=== PATIENT | male | born 1960 | race Caucasian/White ===

== ENCOUNTER → 2016-12-02 | Outpatient (CLI) | payer OTHER ==
[2016-12-02 13:05] LABS: BLOOD UREA NITROGEN 11 mg/dL (7-18)
[2016-12-02 13:09] LABS: ASPARTATE AMINO TRANSFERASE 19 U/L (15-37)
== END | disposition home or self-care (01) ==
LOC: CFH 07:42
PROVIDERS: ATTEND Family Medicine
DX: E11.65 Type 2 diabetes mellitus with hyperglycemia (principal)
CPT/HCPCS: 36415; 80053; 80061; 82043; 83036

== ENCOUNTER → 2018-09-10 | Outpatient (CLI) | payer OTHER ==
[2018-09-10 12:49] LABS: BASOPHILS # (AUTO) 0.01 x10^3/uL (0-0.1); BASOPHILS % (AUTO) 0 % (0-1); EOSINOPHILS # (AUTO) 0.29 x10^3/uL (0-0.4); EOSINOPHILS % (AUTO) 2 % (1-7); LYMPHOCYTES # (AUTO) 1.87 x10^3/uL (1-3.4); LYMPHOCYTES % (AUTO) 14 % (22-44); MD NO; MEAN CORPUSCULAR HEMOGLOBIN 32.6 pg (27.5-34.5); MEAN CORPUSCULAR HGB CONC 33.6 g/dL (33.2-36.2); MEAN CORPUSCULAR VOLUME 97.1 fL (81-97); MEAN PLATELET VOLUME 8.5 fL (7.4-10.4); MONOCYTES # (AUTO) 0.34 x10^3/uL (0.2-0.8); MONOCYTES % (AUTO) 3 % (2-9); NEUTROPHILS % (AUTO) 81 % (42-75); PLATELET COUNT 276 x10^3/uL (130-400); RED BLOOD COUNT 5.22 x10^6/uL (4.38-5.82); RED CELL DISTRIBUTION WIDTH 13.1 % (9.4-14.8)
[2018-09-10 12:56] LABS: ANION GAP 9 mmol/L (5-15); CALCIUM 9.2 mg/dL (8.5-10.1); CHLORIDE 103 mmol/L (98-107); CHOLESTEROL, TOTAL 133 mg/dL (140-239)
[2018-09-10 13:07] LABS: ALANINE AMINOTRANSFERASE 37 U/L (12-78); ALKALINE PHOSPHATASE 83 U/L (45-117); BILIRUBIN,TOTAL 0.6 mg/dL (0.2-1.0); CHOL/HDL RATIO 2.8; CREATININE 0.93 mg/dL (0.7-1.3); HDL CHOL % 35 % (26-37); HDL CHOLESTEROL (DIRECT) 47 mg/dL (40-60); LDL CHOLESTEROL,CALCULATED 42 mg/dL (54-169); LDL/HDL RATIO 0.9 (0.5-3.0); PSA SCREEN 0.98 ng/mL (0.00-4.00); THYROID STIMULATING HORMONE 0.677 mIU/L (0.358-3.740); TRIGLYCERIDES 222 mg/dL (50-200); VLDL CHOLESTEROL 44 mg/dL (0-25)
== END | disposition home or self-care (01) ==
LOC: CFH 07:12
PROVIDERS: ATTEND Family Medicine
DX: Z12.5 Encounter for screening for malignant neoplasm of prostate (principal); E11.65 Type 2 diabetes mellitus with hyperglycemia
CPT/HCPCS: 36415; 80053; 80061; 82043; 83036; 84443; 85025; G0103

== ENCOUNTER 2019-09-07 06:39 | Inpatient (IN) | payer OTHER, MEDICAID ==
[~2019-09-07] VITALS: Ht 177.8 cm; Wt 79.4 kg
[2019-09-07] VITALS (7 sets, daily range): BP systolic 127–187; BP diastolic 74–101
--- NOTE | 2019-09-07 07:11 | NUR ---
ASSUMED CARE OF PT AT THIS TIME FROM LOBBY VIA WHEELCHAIR. ABLE TO STAND AND TRANSFER SELF TO [facility]. SPOUSE AT BEDSIDE. 59 Y/O PRESENTS STATING "FEELING OFF BALANCE, EYES SHAKY ON AND OFF, SEVERE HEADACHE MONDAY, DOUBLE VISION ON AND OFF, NOT IN PAIN ANY WHERE, JUST FEEL LIKE WHEN I STAND UP I WILL FALL DOWN, I'VE BEEN SLEEPING A LOT LIKE 18+ HRS, NUMBNESS ON LEFT SIDE OF TONGUE FOR LAST YEAR BUT SEEMS WORSE LATELY, I WAS THROWING UP A LOT AND MONDAY, STILL NOT EATING SOLID FOOD, JUST LIQUIDS. NOT REALLY DIZZY NOW." PT REPORTS HE HAS NOT TAKEN ANY OF HIS MEDICATIONS SINCE MONDAY, BUT DID TAKE THEM ALL THIS MORNING. DENIES CP, SOB, DIARRHEA, POTTS, ABD PAIN, DIARRHEA, FEVER, CHILLS, RECENT TRAVEL OR EXPOSURE TO COVID + PERSONS. RESIDENT MD AT BEDSIDE FOR EVALUATION. PT HYPERTENSIVE DISCUSSED WITH DR. MIKE AND RESIDENT MD AWARE. AWAITING ORDERS. CONT PULSE OX, BP, CARDIAC MONITORS IN PLACE. SR ON MONITOR. VITALS OTHERWISE STABLE. CALL LIGHT IN REACH. FALL PRECAUTIONS IN PLACE. ASSESSMENT COMPLETED, NEURO AND CMS INTACT. A&OX4.
[2019-09-07] MEDS ORDERED: METF500T17 PO (07:23)
[2019-09-07] MEDS ORDERED: DULA1.5P SQ (07:23)
[2019-09-07] MEDS ORDERED: HYDR25TA6 PO (07:23)
[2019-09-07] MEDS ORDERED: ROSU5TAB PO (07:23)
[2019-09-07] MEDS ORDERED: VERA240C4 PO (07:23)
[2019-09-07] MEDS ORDERED: INSU100I13 SQ-INSULIN (07:24)
[2019-09-07] MEDS ORDERED: DOXA2TAB9 PO (07:24)
[2019-09-07] MEDS ORDERED: LOSA100T14 PO (07:24)
--- NOTE | 2019-09-07 07:38 | NUR ---
DR. MIKE AT BEDSIDE FOR EVALUATION. PT UPDATED ON NPO STATUS, VERBALIZED UNDERSTANDING.
--- NOTE | 2019-09-07 07:45 | NUR ---
RAD AT BEDSIDE
--- NOTE | 2019-09-07 07:50 | NUR ---
PT IN CT, TO START IV UPON RETURN. FSBS COMPLETED WHILE DR. MIKE AT BEDSIDE, AWARE OF RESULT CHARTED. NO NEW ORDERS AT THIS TIME
[2019-09-07] MEDS ORDERED: SODIUM CHLORIDE FLUSH 10ML SYR IVF ONE (08:00)
--- NOTE | 2019-09-07 08:15 | NUR ---
PT BACK FROM CT, IV PLACED, LABS DRAWN. BP REMAINS ELEVATED, LABS OTHERWISE STABLE. DISCUSSED VITALS WITH ERP, AWARE, NO NEW ORDERS RECEIVED. CALL LIGHT IN REACH. FALL PRECUATIONS IN PLACE. DENIES ANY PAIN AND NEED TO USE RESTROOM, AWARE UA SAMPLE IS NEEDED. SPOUSE AT BEDSIDE.
[2019-09-07 08:33] LABS: MEAN CORPUSCULAR HEMOGLOBIN 31.7 pg (27.5-34.5); MEAN CORPUSCULAR HGB CONC 32.7 g/dL (33.2-36.2); MEAN PLATELET VOLUME 8.4 fL (7.4-10.4); PLATELET COUNT 294 x10^3/uL (130-400); RED BLOOD COUNT 5.27 x10^6/uL (4.38-5.82); RED CELL DISTRIBUTION WIDTH 13.1 % (9.4-14.8)
[2019-09-07 08:45] LABS: ALBUMIN 3.8 g/dL (3.4-5.0); ANION GAP 5 mmol/L (5-15); CALCIUM 8.8 mg/dL (8.5-10.1); CHLORIDE 102 mmol/L (98-107)
[2019-09-07 08:50] LABS: ALANINE AMINOTRANSFERASE 28 U/L (12-78); ALKALINE PHOSPHATASE 87 U/L (45-117); BILIRUBIN,TOTAL 0.9 mg/dL (0.2-1.0); CREATININE 0.78 mg/dL (0.7-1.3); TOTAL PROTEIN 7.1 g/dL (6.4-8.2); TROPONIN I < 0.015 ng/mL (0.000-0.045)
--- NOTE | 2019-09-07 08:55 | NUR ---
PT TO MRI AT THIS TIME. DENIED NEED TO USE RESTROOM PRIOR TO EXAM, AWARE UA SAMPLE IS NEEDED, WILL ATTMEPT TO COLLECT ON PT RETURN FROM MRI.
[2019-09-07 09:00] LABS: BASOPHILS # (AUTO) 0.12 x10^3/uL (0-0.1); BASOPHILS % (AUTO) 1 % (0-1); EOSINOPHILS # (AUTO) 0.16 x10^3/uL (0-0.4); EOSINOPHILS % (AUTO) 1 % (1-7); LYMPHOCYTES # (AUTO) 1.95 x10^3/uL (1-3.4); LYMPHOCYTES % (AUTO) 11 % (22-44); MD SCAN; MONOCYTES # (AUTO) 1.15 x10^3/uL (0.2-0.8); MONOCYTES % (AUTO) 7 % (2-9); NEUTROPHILS # (AUTO) 13.75 x10^3/uL (1.8-6.8); NEUTROPHILS % (AUTO) 80 % (42-75)
--- NOTE | 2019-09-07 09:23 | NUR ---
REMAINS IN MRI
--- NOTE | 2019-09-07 09:59 | NUR ---
PT REPORT FROM ELVIS SEBASTIAN. PT CARE TO BE ASSUMED.
[2019-09-07] MEDS ORDERED: ASPIRIN 81 MG TABLET CHEW PO ONE (10:00)
--- NOTE | 2019-09-07 10:00 | NUR ---
PT BACK FROM MRI. CLEAN CATCH UA COLLECTED AND SENT TO LAB. PT REQUESTS URINAL AT BEDSIDE, DECLINED OFFER TO AMBULATE TO RESTROOM. RESTING COMFORTABLY. DENIES ANY PAIN, DIZZINESS, POTTS, VISUAL CHANGES. BP REMAINS ELEVATED, DISCUSSED WITH DR. MIKE AND RESIDENT MD, AWARE, AWAITING ORDERS. PT REPORTS TAKING OWN 81 MG ASA THIS MORNING, 162MG ASPIRIN ORDERED BY ERP, TO CLARIFY ORDER WITH MD. CALL LIGHT IN REACH. FALL PRECUATIONS IN PLACE.
[2019-09-07] MEDS ORDERED: ASPI-496 PO (10:04)
--- NOTE | 2019-09-07 10:04 | NUR ---
PT TO CT. BEDSIDE REPORT AND TRANSFER OF CARE TO SANJIV LEAL AT THIS TIME
[2019-09-07] MEDS ORDERED: ASPIRIN 81 MG TABLET CHEW ONE (10:35)
[2019-09-07 10:37] LABS: MICROSCOPIC NOT IND
[2019-09-07] MEDS ORDERED: OMNIPAQUE 350 MG/ML, 75ML BOTTLE ONE (10:44)
--- NOTE | 2019-09-07 10:45 | NUR ---
TASK RN. PT BACK FROM CT. DYSPHAGIA SCREEN COMPLETED PER DR. MIKE PRIOR TO MEDICATION ADMIN, PT PASSED NOTED. BP IMPROVING 172/94, REMAINS SR ON MONITOR. DISCUSSED CATAPRES AND BP WITH DR. NAVARRO, PER MD TO HOLD CATAPRES AT THIS TIME. RESTING COMFORTABLY. VSS. DENIES DIZZINESS, POTTS, CP, SOB, ANY VISUAL CHANGES. SPOUSE REMAINS AT BEDSIDE. REPORT AND CARE BACK TO PRIMARY RN SANJIV.
[2019-09-07] MEDS ORDERED: CLOPIDOGREL 75 MG TABLET PO SCH (11:00)
[2019-09-07] MEDS ORDERED: CLOPIDOGREL 75 MG TABLET ONE (11:01)
--- NOTE | 2019-09-07 11:03 | NUR ---
PT A&OX4, RESP EVEN & UNLABORED, SPEECH CLEAR, SKIN WNL. REPORTS CONTINUING "NUMBISH TONGUE". ABLE TO SPEAK IN COMPLETE SENTENCES. PT'S SPOUSE IN ROOM. MONITORING CONTINUING; NSR.
--- NOTE | 2019-09-07 12:00 | NUR ---
HOSPITAL PHYSICIAN AT , DISCUSSING POC.
[2019-09-07] MEDS ORDERED: DOCUSATE 100 MG CAPSULE PO PRN (12:30)
[2019-09-07] MEDS ORDERED: DIPHENHYDRAMINE 25 MG CAPSULE PO PRN (12:30)
[2019-09-07] MEDS ORDERED: BUTALB/APAP/CAFFEINE 50MG/325MG/40MG PO PRN (12:30)
[2019-09-07] MEDS ORDERED: morphine SULFATE 10 MG/ML, 1ML IVPush PRN (12:30)
[2019-09-07] MEDS ORDERED: ENALAPRILAT 1.25 MG/ML, 2ML IVPush PRN ×2 (12:30→13:00)
[2019-09-07] MEDS ORDERED: ACETAMINOPHEN 325 MG TABLET PO PRN (12:30)
--- NOTE | 2019-09-07 13:11 | NUR ---
CALLED RECEIVING RN BACK (SHE CALLED EARLIER FOR REPORT), RN NOT AVAILABLE BUT WILL CALL BACK.
[2019-09-07] MEDS ORDERED: ENOXAPARIN 40 MG/0.4 ML ONE (13:13)
[2019-09-07] MEDS: ENOXAPARIN 40 MG/0.4 ML SQ SCH (13:16)
--- NOTE | 2019-09-07 13:25 | NUR ---
PT REPORT TO ELVIS DAVIDSON FOR ROOM 493-1
[2019-09-07] MEDS: LOSARTAN 100 MG TAB PO SCH (14:19)
[2019-09-07] MEDS ORDERED: INSU100I11 SQ (17:02)
[2019-09-07] MEDS ORDERED: ATORVASTATIN 80 MG TABLET PO SCH (21:00)
[2019-09-07] MEDS: FAMOTIDINE 20 MG TABLET PO SCH (21:08)
[2019-09-07] MEDS: INSULIN LISPRO 100 UNITS/ML, PEN SQ-INSULIN SCH (21:09)
[2019-09-08] VITALS (7 sets, daily range): BP systolic 138–165; BP diastolic 67–88
[2019-09-08] MEDS: ASPIRIN 81 MG TABLET CHEW PO SCH (05:18)
[2019-09-08] MEDS ORDERED: ASPIRIN 325 MG TABLET EC PO SCH (06:00)
[2019-09-08 06:37] LABS: BASOPHILS # (AUTO) 0.06 x10^3/uL (0-0.1); BASOPHILS % (AUTO) 1 % (0-1); EOSINOPHILS # (AUTO) 0.32 x10^3/uL (0-0.4); EOSINOPHILS % (AUTO) 3 % (1-7); LYMPHOCYTES # (AUTO) 2.48 x10^3/uL (1-3.4); LYMPHOCYTES % (AUTO) 22 % (22-44); MD NO; MEAN CORPUSCULAR HEMOGLOBIN 32.1 pg (27.5-34.5); MEAN CORPUSCULAR HGB CONC 33.4 g/dL (33.2-36.2); MEAN PLATELET VOLUME 8.8 fL (7.4-10.4); MONOCYTES # (AUTO) 0.94 x10^3/uL (0.2-0.8); MONOCYTES % (AUTO) 8 % (2-9); NEUTROPHILS # (AUTO) 7.36 x10^3/uL (1.8-6.8); NEUTROPHILS % (AUTO) 66 % (42-75); PLATELET COUNT 295 x10^3/uL (130-400); RED BLOOD COUNT 5.28 x10^6/uL (4.38-5.82); RED CELL DISTRIBUTION WIDTH 13.1 % (9.4-14.8)
[2019-09-08 06:52] LABS: ANION GAP 3 mmol/L (5-15); CALCIUM 8.9 mg/dL (8.5-10.1); CHLORIDE 101 mmol/L (98-107)
[2019-09-08 07:06] LABS: CHOL/HDL RATIO 3.2; CHOLESTEROL, TOTAL 111 mg/dL (140-239); CREATININE 0.72 mg/dL (0.7-1.3); HDL CHOL % 32 % (26-37); HDL CHOLESTEROL (DIRECT) 35 mg/dL (40-60); LDL CHOLESTEROL,CALCULATED 29 mg/dL (54-169); LDL/HDL RATIO 0.8 (0.5-3.0); TRIGLYCERIDES 236 mg/dL (50-200); VLDL CHOLESTEROL 47 mg/dL (0-25)
[2019-09-08] MEDS: DOXAZOSIN 2MG TABLET PO SCH (09:02)
[2019-09-08] MEDS: LOSARTAN 100 MG TAB PO SCH (09:03)
[2019-09-08] MEDS: SENNA/DOCUSATE TABLET PO SCH (09:04)
[2019-09-08] MEDS: FAMOTIDINE 20 MG TABLET PO SCH ×2 (09:04→21:11)
[2019-09-08] MEDS: INSULIN GLARGINE 100 UNITS/ML, PEN SQ-INSULIN SCH (09:08)
[2019-09-08] MEDS: INSULIN LISPRO 100 UNITS/ML, PEN SQ-INSULIN SCH ×4 (09:08→21:11)
[2019-09-08] MEDS: ENOXAPARIN 40 MG/0.4 ML SQ SCH (12:28)
[2019-09-08] MEDS ORDERED: ATORVASTATIN 10 MG TABLET PO SCH (21:00)
[2019-09-09 01:56] VITALS: BP 156/84
[2019-09-09] MEDS: ASPIRIN 81 MG TABLET CHEW PO SCH (05:57)
[2019-09-09 06:40] VITALS: BP 153/97
[2019-09-09] MEDS: SENNA/DOCUSATE TABLET PO SCH (07:49)
[2019-09-09] MEDS: FAMOTIDINE 20 MG TABLET PO SCH (07:49)
[2019-09-09] MEDS: LOSARTAN 100 MG TAB PO SCH (07:49)
[2019-09-09] MEDS: DOXAZOSIN 2MG TABLET PO SCH (07:50)
[2019-09-09] MEDS: INSULIN GLARGINE 100 UNITS/ML, PEN SQ-INSULIN SCH (07:50)
[2019-09-09] MEDS: INSULIN LISPRO 100 UNITS/ML, PEN SQ-INSULIN SCH ×2 (07:50→11:21)
[2019-09-09] MEDS ORDERED: ASPI-515 PO (10:23)
[2019-09-09] MEDS ORDERED: CLOP75TA52 PO (10:23)
[2019-09-09 12:45] VITALS: BP 164/93
== END 2019-09-09 13:11 | disposition home or self-care (01) | DRG 65 ==
LOC: ED 10:56 → SUATTDRO 12:16 → EDIP 12:30 → 4EST 13:37 → DCLOUNGE 09-09 12:59
PROVIDERS: ADMIT Family Medicine; ATTEND Family Medicine
DX: I63.40 Cerebral infarction due to embolism of unspecified cerebral artery (principal); G81.91 Hemiplegia, unspecified affecting right dominant side; E11.65 Type 2 diabetes mellitus with hyperglycemia; E78.5 Hyperlipidemia, unspecified; F17.210 Nicotine dependence, cigarettes, uncomplicated; H53.2 Diplopia; I10 Essential (primary) hypertension; R27.0 Ataxia, unspecified; K30 Functional dyspepsia; R29.700 NIHSS score 0; Z79.4 Long term (current) use of insulin; Z79.82 Long term (current) use of aspirin; Z91.14 Patient's other noncompliance with medication regimen
CPT/HCPCS: 36415; 70450; 70496; 70498; 70551; 71045; 80048; 80053; 80061; 81003; 82962; 83605; 84443; 84484; 85025; 93005; 93306; G0378; J1650; Q9967; J1815

== ENCOUNTER 2019-10-31 16:22 | Inpatient (IN) | payer OTHER, MEDICAID ==
[~2019-10-31] VITALS: Ht 177.8 cm; Wt 83.3 kg
[~2019-10-31 16:22] MED LIST: ASPI-496 PO; ASPI-515 PO; CLOP75TA52 PO; DOXA2TAB9 PO; DULA1.5P SQ; HYDR25TA6 PO; INSU100I11 SQ; INSU100I13 SQ-INSULIN; LOSA100T14 PO; METF500T17 PO; ROSU5TAB PO; VERA240C4 PO
--- NOTE | 2019-10-31 17:04 | NUR ---
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 ONSET TODAY AT 0930 OF RIGHT SIDE WEAKNESS WITH PROFOUND WEAKNESS OF THE OF HIS RIGHT LEG. SYMPTOMS SLOWLY IMPROVED T/O THE DAY. PT NOW PRESENTS SS= 3 RIGHT HAND GRASP WEAKER THAN LEFT. RIGHT LEG WITH MILD WEAKNESS AND NO DRIFT. SPEECH IS UNDERSTANDABLE BUT WITH MILD DYSARTHRIA AND A SLIGHT RIGHT FACIAL DROP NOTED WHILE SPEAKING. STATES "HE SOUNDS LIKE HE IS DRUNK". DR KAPLAN AT BEDSIDE, PT ASSESSMENT REVIEWED AND QUESTIONS ANSWERED. ORDERS REC'D.
[2019-10-31] MEDS ORDERED: METF10007 PO (17:07)
[2019-10-31] MEDS ORDERED: ROSU5TAB12 PO (17:07)
[2019-10-31 17:09] LABS: BASOPHILS # (AUTO) 0.08 x10^3/uL (0-0.1); BASOPHILS % (AUTO) 1 % (0-1); EOSINOPHILS # (AUTO) 0.25 x10^3/uL (0-0.4); EOSINOPHILS % (AUTO) 2 % (1-7); LYMPHOCYTES # (AUTO) 2.55 x10^3/uL (1-3.4); LYMPHOCYTES % (AUTO) 22 % (22-44); MD NO; MEAN CORPUSCULAR HEMOGLOBIN 32.5 pg (27.5-34.5); MEAN CORPUSCULAR VOLUME 95.4 fL (81-97); MEAN PLATELET VOLUME 8.6 fL (7.4-10.4); MONOCYTES # (AUTO) 0.62 x10^3/uL (0.2-0.8); MONOCYTES % (AUTO) 5 % (2-9); NEUTROPHILS # (AUTO) 8.03 x10^3/uL (1.8-6.8); NEUTROPHILS % (AUTO) 70 % (42-75); PLATELET COUNT 320 x10^3/uL (130-400); RED BLOOD COUNT 4.88 x10^6/uL (4.38-5.82); RED CELL DISTRIBUTION WIDTH 13.6 % (9.4-14.8)
[2019-10-31 17:14] LABS: INTERNATIONAL NORMALIZED RATIO 0.92 (0.93-1.1); PROTHROMBIN TIME 9.5 Seconds (9.6-11.5)
[2019-10-31 17:15] LABS: ALANINE AMINOTRANSFERASE 37 U/L (12-78); ALBUMIN 3.7 g/dL (3.4-5.0); ANION GAP 9 mmol/L (5-15); CALCIUM 8.8 mg/dL (8.5-10.1); CHLORIDE 102 mmol/L (98-107); CREATININE 0.93 mg/dL (0.7-1.3)
--- NOTE | 2019-10-31 17:17 | NUR ---
BREAK RN: ENRIQUE RPT TO ELVIS KINCAID
[2019-10-31 17:20] LABS: ALKALINE PHOSPHATASE 85 U/L (45-117); BILIRUBIN,TOTAL 0.4 mg/dL (0.2-1.0); TOTAL PROTEIN 6.9 g/dL (6.4-8.2); TROPONIN I < 0.015 ng/mL (0.000-0.045)
--- NOTE | 2019-10-31 17:27 | NUR ---
TO CT PER WILL
[2019-10-31] MEDS ORDERED: LABETALOL 5MG/ML, 20ML IVPush PRN (18:00)
[2019-10-31] MEDS ORDERED: LABETALOL 5MG/ML, 20ML ONE (18:18)
--- NOTE | 2019-10-31 18:19 | NUR ---
DR KAPLAN AT BS
--- NOTE | 2019-10-31 18:27 | NUR ---
LABETELOL GIVEN PER EMAR. PT IN [facility] SPIRITS, JOKING W/ SPOUSE. MONITORING CONTINUING: NSR.
[2019-10-31] MEDS ORDERED: VARE1TAB21 PO (19:29)
[2019-10-31] MEDS ORDERED: ONDANSETRON 2MG/ML, 2ML IVPush PRN (20:00)
[2019-10-31] MEDS ORDERED: OXYcodone IR 5MG TABLET PO PRN (20:00)
[2019-10-31] MEDS ORDERED: ACETAMINOPHEN 325 MG TABLET PO PRN (20:00)
[2019-10-31] MEDS ORDERED: ONDANSETRON ODT 4 MG PO PRN (20:00)
[2019-10-31] MEDS ORDERED: POLYETHYLENE GLYCOL 17 GM PACKET PO PRN (20:00)
[2019-10-31] MEDS ORDERED: NITROGLYCERIN 0.4 MG BOTTLE (25 TABS) SL PRN (20:00)
[2019-10-31] MEDS ORDERED: PROMETHAZINE 25 MG/ML, 1ML IM PRN (20:00)
[2019-10-31] MEDS ORDERED: DOCUSATE 100 MG CAPSULE PO PRN (20:00)
[2019-10-31] MEDS ORDERED: BISACODYL 10 MG SUPP PR PRN (20:00)
[2019-10-31] MEDS ORDERED: hydrALAzine 20 MG/ML, 1ML IVPush PRN (20:00)
[2019-10-31] MEDS ORDERED: HEPARIN 5,000 UNITS/ML, 1ML ONE (20:01)
[2019-10-31] MEDS: SODIUM CHLORIDE 0.9% 1,000 ML IV SCH (20:04)
[2019-10-31] MEDS: HEPARIN 5,000 UNITS/ML, 1ML SQ SCH (20:08)
[2019-10-31 20:32] LABS: FREE T4 (FREE THYROXINE) 1.2 ng/dL (0.76-1.46)
[2019-10-31] MEDS ORDERED: ATORVASTATIN 40 MG TABLET ONE (21:08)
--- NOTE | 2019-10-31 21:20 | NUR ---
RESTING QUIETLY ON BED, WATCHING TV.
[2019-10-31] MEDS: ATORVASTATIN 40 MG TABLET PO SCH (21:21)
--- NOTE | 2019-10-31 21:28 | NUR ---
HUMALOG PEN ORDERED FROM PHARMACY
--- NOTE | 2019-10-31 22:05 | NUR ---
PT REPORT TO ELVIS LICONA. PT CARE TRANSFERED. INSULIN PEN GIVEN TO LIVAN
--- NOTE | 2019-10-31 22:08 | NUR ---
REPORT RECEIVED FROM ELVIS KINCAID.
[2019-10-31] MEDS: INSULIN LISPRO 100 UNITS/ML, PEN SQ-INSULIN SCH (22:26)
--- NOTE | 2019-10-31 22:28 | NUR ---
PT MEDICATED PER MAR. ROOM DIMMED FOR PT COMFORT. ALL MONITORING IN PLACE, CALL LIGHT WITHIN REACH.
--- NOTE | 2019-11-01 01:51 | NUR ---
PT RESTING ON GURNEY WITH EYES CLOSED, RESPIRATIONS EVEN AND NONLABORED. MONITORING IN PLACE, CALL LIGHT WITHIN REACH.
--- NOTE | 2019-11-01 03:20 | NUR ---
PT PROVIDED SNACK AND ADDITIONAL WATER UPON REQUEST, DENIES FURTHER NEEDS AT THIS TIME. MONITORING IN PLACE, CALL LIGHT WITHIN REACH.
--- NOTE | 2019-11-01 05:32 | NUR ---
PT RESTING ON GURNEY, MONITORING IN PLACE, CALL LIGHT WITHIN REACH.
[2019-11-01 05:34] LABS: BASOPHILS # (AUTO) 0.07 x10^3/uL (0-0.1); BASOPHILS % (AUTO) 1 % (0-1); EOSINOPHILS # (AUTO) 0.15 x10^3/uL (0-0.4); EOSINOPHILS % (AUTO) 2 % (1-7); LYMPHOCYTES # (AUTO) 2.07 x10^3/uL (1-3.4); LYMPHOCYTES % (AUTO) 22 % (22-44); MD NO; MEAN CORPUSCULAR HEMOGLOBIN 31.5 pg (27.5-34.5); MEAN CORPUSCULAR HGB CONC 32.7 g/dL (33.2-36.2); MEAN CORPUSCULAR VOLUME 96.5 fL (81-97); MEAN PLATELET VOLUME 8.4 fL (7.4-10.4); MONOCYTES # (AUTO) 0.72 x10^3/uL (0.2-0.8); MONOCYTES % (AUTO) 8 % (2-9); NEUTROPHILS # (AUTO) 6.43 x10^3/uL (1.8-6.8); NEUTROPHILS % (AUTO) 68 % (42-75); PLATELET COUNT 289 x10^3/uL (130-400); RED BLOOD COUNT 4.69 x10^6/uL (4.38-5.82); RED CELL DISTRIBUTION WIDTH 13.4 % (9.4-14.8)
[2019-11-01] MEDS ORDERED: ASPIRIN 325 MG TABLET EC ONE (05:37)
[2019-11-01] MEDS: ASPIRIN 325 MG TABLET EC PO SCH (05:41)
[2019-11-01 05:49] LABS: CHLORIDE 105 mmol/L (98-107)
[2019-11-01 05:56] LABS: ALANINE AMINOTRANSFERASE 35 U/L (12-78); ALBUMIN 3.3 g/dL (3.4-5.0); ALKALINE PHOSPHATASE 75 U/L (45-117); ANION GAP 5 mmol/L (5-15); BILIRUBIN,TOTAL 0.5 mg/dL (0.2-1.0); CALCIUM 8.4 mg/dL (8.5-10.1); CHOL/HDL RATIO 3.3; CHOLESTEROL, TOTAL 112 mg/dL (140-239); CREATININE 0.73 mg/dL (0.7-1.3); HDL CHOL % 30 % (26-37); HDL CHOLESTEROL (DIRECT) 34 mg/dL (40-60); LDL CHOLESTEROL,CALCULATED 6 mg/dL (54-169); LDL/HDL RATIO 0.2 (0.5-3.0); TOTAL PROTEIN 6.3 g/dL (6.4-8.2); TRIGLYCERIDES 358 mg/dL (50-200); VLDL CHOLESTEROL 72 mg/dL (0-25)
--- NOTE | 2019-11-01 06:53 | NUR ---
REPORT TO ELVIS REECE.
--- NOTE | 2019-11-01 06:55 | NUR ---
REPORT FROM JAGDISH LICONA, VSS.
--- NOTE | 2019-11-01 08:08 | NUR ---
PT AMBULATED TO BATHROOM. PT ON HOSPITAL BED FOR COMFORT. BREAKFAST TRAY PROVIDED TO PATIENT. MEDICATIONS ORDERED FROM PHARMACY. BS 290. VSS, CALL LIGHT IN REACH
[2019-11-01] MEDS ORDERED: HEPARIN 5,000 UNITS/ML, 1ML ONE (08:23)
--- NOTE | 2019-11-01 08:31 | NUR ---
PT TO IMAGING
[2019-11-01] MEDS: HEPARIN 5,000 UNITS/ML, 1ML SQ SCH ×2 (08:57→17:13)
[2019-11-01] MEDS: LOSARTAN 100 MG TAB PO SCH (08:57)
[2019-11-01] MEDS: DOXAZOSIN 2MG TABLET PO SCH (08:58)
[2019-11-01] MEDS: INSULIN LISPRO 100 UNITS/ML, PEN SQ-INSULIN SCH ×4 (08:59→20:01)
[2019-11-01] MEDS ORDERED: HYDROCHLOROTHIAZIDE 25 MG TABLET PO SCH (09:00)
[2019-11-01] MEDS: INSULIN GLARGINE 100 UNITS/ML, PEN SQ-INSULIN SCH (09:30)
[2019-11-01] MEDS: VERAPAMIL ER 240MG TABLET.ER PO SCH (09:30)
--- NOTE | 2019-11-01 09:35 | NUR ---
PT RESTING, LIGHTS OFF, CALL LIGHT IN REACH
--- NOTE | 2019-11-01 11:06 | NUR ---
SM AT BEDSIDE FOR ASSESMENT.
--- NOTE | 2019-11-01 12:20 | NUR ---
PT PROVIDED MEAL TRAY.
--- NOTE | 2019-11-01 13:15 | NUR ---
ATTEMPT REPORT TO RN ON TELE 2
--- NOTE | 2019-11-01 14:39 | NUR ---
REPORT TO TELE2 SUP
[2019-11-01 15:11] VITALS: BP 154/98
[2019-11-01] MEDS: SODIUM CHLORIDE 0.9% 1,000 ML IV SCH (16:17)
[2019-11-01 18:47] VITALS: BP 173/89
[2019-11-01 18:48] VITALS: BP 169/94
[2019-11-01] MEDS: ATORVASTATIN 40 MG TABLET PO SCH (20:00)
[2019-11-02] MEDS: HEPARIN 5,000 UNITS/ML, 1ML SQ SCH ×2 (00:37→08:19)
[2019-11-02 00:43] VITALS: BP 170/97
[2019-11-02] MEDS: ASPIRIN 325 MG TABLET EC PO SCH (05:01)
[2019-11-02 06:59] VITALS: BP 176/102
[2019-11-02] MEDS: VERAPAMIL ER 240MG TABLET.ER PO SCH (08:08)
[2019-11-02] MEDS: DOXAZOSIN 2MG TABLET PO SCH (08:08)
[2019-11-02] MEDS: LOSARTAN 100 MG TAB PO SCH (08:09)
[2019-11-02] MEDS: INSULIN LISPRO 100 UNITS/ML, PEN SQ-INSULIN SCH ×2 (08:10→11:31)
[2019-11-02] MEDS: INSULIN GLARGINE 100 UNITS/ML, PEN SQ-INSULIN SCH (08:11)
[2019-11-02] MEDS ORDERED: CLOPIDOGREL 75 MG TABLET PO SCH (09:00)
[2019-11-02] MEDS ORDERED: FENOFIBRATE 145 MG TABLET PO SCH (09:00)
[2019-11-02] MEDS ORDERED: metFORMIN 500 MG TABLET PO SCH (09:00)
[2019-11-02] MEDS ORDERED: HYDROCHLOROTHIAZIDE 25 MG TABLET PO SCH (09:00)
[2019-11-02] MEDS ORDERED: LIDOCAINE 1%, 20ML ONE (09:54)
[2019-11-02 10:58] VITALS: BP 175/110
[2019-11-02 11:00] VITALS: BP 166/96
[2019-11-02] MEDS ORDERED: LOSARTAN 50MG TABLET PO ONE (11:30)
[2019-11-02] MEDS ORDERED: FENO145T19 PO (11:45)
[2019-11-02] MEDS ORDERED: CLOP75TA PO (11:45)
[2019-11-02] MEDS ORDERED: ATOR40TA78 PO (11:45)
[2019-11-02] MEDS ORDERED: LOSA100T14 PO (11:45)
[2019-11-02 13:11] VITALS: BP 138/83
[2019-11-03] MEDS ORDERED: ASPIRIN 81 MG TABLET EC PO SCH (06:00)
== END 2019-11-02 13:25 | disposition home or self-care (01) | DRG 65 ==
LOC: ED 16:49 → EDIP 20:02 → 4WST 11-01 15:08 → DCLOUNGE 11-02 13:17
PROVIDERS: ADMIT Internal Medicine; ATTEND Internal Medicine
DX: I63.9 Cerebral infarction, unspecified (principal); G81.91 Hemiplegia, unspecified affecting right dominant side; E11.51 Type 2 diabetes mellitus with diabetic peripheral angiopathy without gangrene; E11.65 Type 2 diabetes mellitus with hyperglycemia; E78.2 Mixed hyperlipidemia; F17.210 Nicotine dependence, cigarettes, uncomplicated; H53.2 Diplopia; R29.810 Facial weakness; Z79.82 Long term (current) use of aspirin; Z80.0 Family history of malignant neoplasm of digestive organs; Z80.8 Family history of malignant neoplasm of other organs or systems; Z82.49 Family history of ischemic heart disease and other diseases of the circulatory system; Z79.899 Other long term (current) drug therapy; R29.702 NIHSS score 2
CPT/HCPCS: 33285; 36415; J3490; 70450; 70551; 71045; 80053; 80061; 80307; 82962; 83036; 83735; 84439; 84443; 84484; 85025; 85610; 85730; 93005; 93308; C1764; G0378; J1644; J1815; J7030

== ENCOUNTER → 2020-05-07 | Outpatient (CLI) | payer OTHER, MEDICAID ==
[~2020-05-07] MED LIST changes: -ASPI-515 PO; +ASPI-963 PO; +ATOR40TA78 PO; +CLOP75TA PO; +FENO145T19 PO; +METF10007 PO; +REGADENOSON 0.4 MG/5 ML SYRINGE ONE; +ROSU5TAB12 PO; +VARE1TAB21 PO
== END | disposition home or self-care (01) ==
LOC: CFH 07:22
PROVIDERS: ATTEND Internal Medicine Cardiovascular Disease
DX: I10 Essential (primary) hypertension (principal); I63.9 Cerebral infarction, unspecified
CPT/HCPCS: 78452; 93017; A9502; J2785